=== PATIENT | male | born 1970 | race Caucasian/White ===

== ENCOUNTER 2020-05-20 00:52 | Outpatient (CLI) | payer BC, SELFPAY ==
[2020-05-20 16:30] LABS: SARS-CoV-2 RNA PCR Negative
== END 2020-05-20 00:53 | disposition home or self-care (01) ==
LOC: ANHCOVIDDT 00:53
PROVIDERS: PCP Internal Medicine; Visit Provider Internal Medicine Gastroenterology
DX: Z01.812 Encounter for preprocedural laboratory examination (principal); Z20.828 Contact with and (suspected) exposure to other viral communicable diseases
CPT/HCPCS: 87635; C9803; U0003

== ENCOUNTER 2020-05-22 00:12 | Day surgery (SDC) | payer BC, SELFPAY ==
[2020-05-13 13:39] VITALS: BMI 28.0
[2020-05-22 06:43] VITALS: BP 132/88; PULSE 74; RESP 12; TEMP 36.3; O2SAT 100; BMI 28.0
[2020-05-22] MEDS: LACTATED RINGERS 1,000 ML 150 ML IV CONT (06:49)
--- NOTE | 2020-05-22 07:07 | WPDANESEPPF ---
Anes - Initial Pre Proc Eval Procedure: Operation Date: 05/22/20 07:30 Proposed Procedures p Screening Colonoscopy - Sterling Bunn MD Date/Time: 05/22/20 07:07 Surgeon: Sterling Bunn MD Pre Op Diagnosis: Neoplasm Screening Patient Data Age: 50 Gender: M Height: 1.85 m Weight: 96.3 kg Last Vital Signs Temp 36.3 C L 05/22/20 06:43 Pulse 74 05/22/20 06:43 Resp 12 05/22/20 06:43 BP 132/88 05/22/20 06:43 Pulse Ox 100 05/22/20 06:43 Allergies Allergy/AdvReac Type Severity Reaction Status Date / Time No Known Allergies Allergy Unverified 05/22/20 06:42 Home Medications Medication Instructions Recorded Confirmed Type tadalafil 20 mg tablet 20 mg PO DAILY PRN #18 tablet 03/11/20 05/13/20 Rx clobetasol 0.05 % topical ointment 1 applic TOPICAL BID #60 gm 03/12/20 05/13/20 Rx rosuvastatin 10 mg tablet 10 mg PO DAILY #90 tablet 03/25/20 05/13/20 Rx calcipotriene 0.005 % topical cream 1 applic TOPICAL BID 04/02/20 05/13/20 History multivitamin 1 tablet PO DAILY 04/02/20 05/13/20 History omega-3 fatty acids 1,000 mg 1,000 mg PO DAILY 04/02/20 05/13/20 History capsule Patient hx anesthesia problems: none Family hx anesthesia problems: none PMFSH Past Medical History Medical History (Updated 05/22/20 @ 07:07 by Lux Guillermo MD) Chicken pox Elevated BP without diagnosis of hypertension Erectile dysfunction Family history of early CAD Lumbar back pain Overweight (BMI 25.0-29.9) Psoriasis Surgical History Surgical History (Updated 04/02/20 @ 07:22 by Tejal Antony CMA) H/O hernia repair Family History Family History (Updated 11/30/18 @ 10:33 by DOCTOR UNKNOWN) Father Acute myocardial infarction Family history of cardiovascular disease Grandparent Family history of cardiovascular disease Family history of malignant neoplasm of esophagus Other Family history of allergic disorder Social History Social History Smoking status: Former smoker Second hand tobacco smoke exposure: No Smoking end date: 07/26/91 Alcohol intake: current Substance use type: does not use Living arrangements: with family Gender identity (if verbalized by the patient): Male Spiritual care concerns: No Anes - Eval Final PreProcedure Day of Procedure 05/22/20 07:07 Patient weight: overweight Heart: regular rate and rhythm Lungs: clear to auscultation and normal air movement Airway: Mallampati scale class II Neurological: alert and oriented Last oral intake: >/= 8 hours ASA classification: II Emergent: no Anesthetic plan: proceed Anesthesia type and monitoring: general GIVS Informed Consent: The patient's anesthetic plan and its attendant risks and benefits were discussed with the patient/family/POA. Questions were solicited and answers provided to the satisfaction of the patient/family/POA.
--- NOTE | 2020-05-22 07:10 | PM.HPGS ---
History of Present Illness History of Present Illness Consent: Risks, benefits, and alternatives have been discussed and questions answered. Patient agrees to proceed with procedure. Chief complaint: Neoplasm Screening Narrative: Alex Payne is a 50 year old W male referred for his 1st screening colonoscopy. Patient is asymptomatic. He thinks his paternal grandfather had colon cancer. [facility], [facility] Past Medical History Medical History Chicken pox Elevated BP without diagnosis of hypertension Erectile dysfunction Family history of early CAD Lumbar back pain Overweight (BMI 25.0-29.9) Psoriasis Surgical History Surgical History H/O hernia repair Family History Family History (Updated 11/30/18 @ 10:33 by DOCTOR UNKNOWN) Father Acute myocardial infarction Family history of cardiovascular disease Grandparent Family history of cardiovascular disease Family history of malignant neoplasm of esophagus Other Family history of allergic disorder Social History Social History Smoking status: Former smoker Second hand tobacco smoke exposure: No Smoking end date: 07/26/91 Alcohol intake: current Substance use type: does not use Living arrangements: with family Gender identity (if verbalized by the patient): Male Spiritual care concerns: No Meds Home Medications and Allergies Home Medications Medication Instructions Recorded Confirmed Type tadalafil 20 mg tablet 20 mg PO DAILY PRN #18 tablet 03/11/20 05/13/20 Rx clobetasol 0.05 % topical ointment 1 applic TOPICAL BID #60 gm 03/12/20 05/13/20 Rx rosuvastatin 10 mg tablet 10 mg PO DAILY #90 tablet 03/25/20 05/13/20 Rx calcipotriene 0.005 % topical cream 1 applic TOPICAL BID 04/02/20 05/13/20 History multivitamin 1 tablet PO DAILY 04/02/20 05/13/20 History omega-3 fatty acids 1,000 mg 1,000 mg PO DAILY 04/02/20 05/13/20 History capsule Allergies Allergy/AdvReac Type Severity Reaction Status Date / Time No Known Allergies Allergy Unverified 05/22/20 06:42 Vital Signs Vital Signs - 24 hr 05/22/20 06:43 Temperature 36.3 C L Pulse Rate 74 Respiratory Rate 12 Blood Pressure 132/88 Pulse Oximetry 100 Exam Const: Orientation/consciousness: patient oriented x3 Resp: Auscultation: clear to auscultation bilaterally Cardio: Rate: regular rate Rhythm: regular rhythm Heart sounds: no murmurs GI: GI Palp: Yes Soft to palpation, No Tenderness to palpation present (GI), Yes No hepatosplenomegaly present and No Palpable mass present Auscultation: normal bowel sounds Neuro: General: patient oriented x3 and no focal motor deficits Extrem: General: no pedal edema Assessment and Plan Additional Plan Screening colonoscopy
[2020-05-22 07:47] VITALS: BP 110/58; PULSE 68; RESP 18; O2SAT 98
[2020-05-22 07:57] VITALS: BP 110/57; PULSE 74; RESP 15; O2SAT 99
[2020-05-22 08:07] VITALS: BP 116/77; PULSE 69; RESP 20; O2SAT 100
== END 2020-05-22 08:15 | disposition home or self-care (01) ==
PROVIDERS: PCP Internal Medicine; Visit Provider Internal Medicine Gastroenterology
PROC: 0DJD8ZZ Inspection of Lower Intestinal Tract, Via Natural or Artificial Opening Endoscopic (ICD-10-PCS; CPT 45378; principal; 2020-05-22 07:30)
DX: Z12.11 Encounter for screening for malignant neoplasm of colon (principal); Z80.0 Family history of malignant neoplasm of digestive organs; L40.9 Psoriasis, unspecified; N52.9 Male erectile dysfunction, unspecified; Z87.891 Personal history of nicotine dependence
CPT/HCPCS: 45378; J2704; J7120